=== PATIENT | female | born 1965 | race Caucasian/White ===

== ENCOUNTER 2017-09-22 17:24 | Inpatient (IN) | payer MEDICARE ==
[~2017-09-22] VITALS: Ht 165.1 cm; Wt 70.3 kg
[~2017-09-22 17:24] MED LIST: LIBRIUM; OXYCODONE; SYNTHROID; TOPAMAX
[2017-09-22] MEDS ORDERED: SODIUM CHLORIDE 0.9% 1,000 ML IVB ONE (19:18)
[2017-09-22] MEDS ORDERED: ONDANSETRON HCL 4 MG/2 ML VIAL IV ONE ×2 (19:30→23:15)
[2017-09-22] MEDS ORDERED: MEPERIDINE HCL (25 MG/ML) 1ML VIAL IV ONE (19:30)
[2017-09-22 20:24] LABS: Basophils # (auto) 0.1 uL; Basophils % (auto) 0.7 % (0.0-2.0); Eosinophils # (auto) 0.2 uL; Eosinophils % (auto) 2.6 % (0.0-7.0); Hematocrit 39.1 % (36.0-46.0); Hemoglobin 12.8 g/dL (12.2-16.2); Lymphocytes # (auto) 1.7 uL; Lymphocytes % (auto) 19.1 % (10.0-50.0); Mean Corpuscular Hemoglobin 29.9 pg (28.0-32.0); Mean Corpuscular Hgb Conc. 32.6 g/dL (32.0-36.0); Mean Corpuscular Volume 91.7 fL (80.0-100.0); Monocytes # (auto) 0.6 uL; Monocytes % (auto) 6.9 % (0.0-12.0); Neutrophils # (auto) 6.5 uL; Neutrophils % (auto) 70.7 % (37.0-80.0); Platelet Count (auto) 206 10^3/uL (140-450); Red Blood Cells 4.27 10^6/uL (4.0-5.20); Red Cell Distribution Width 14.1 % (11.8-14.3); White Blood Cell 9.1 10^3/uL (4.4-10.8)
[2017-09-22 20:43] LABS: INR 0.94 (0.9-1.15); Partial Thromboplastin Time 27.2 sec (22.64-33.71); Prothrombin Time 10.2 sec (9.37-12.3)
[2017-09-22 20:58] LABS: Magnesium 2.2 mg/dL (1.6-2.6)
[2017-09-22 21:01] LABS: BUN/Creatinine Ratio 12.2; Bilirubin, Total 0.2 mg/dL (0.2-1.0); Calcium 9.7 mg/dL (8.5-10.1); Potassium 3.7 mmol/L (3.5-5.1)
[2017-09-22 21:02] LABS: Albumin 3.9 g/dL (3.4-5.0)
[2017-09-22] MEDS ORDERED: cefTRIAXone 1GM/10ml IVPUSH 10 ML IV ONE (22:45)
[2017-09-22] MEDS ORDERED: diphenhdrAMINE HCL 50 MG/1 ML VL IV ONE (23:15)
[2017-09-22] MEDS ORDERED: MORPHINE SULFATE 4 MG/ML SYR/VIAL IV ONE (23:15)
[2017-09-22] MEDS: SODIUM CHLORIDE 0.9% 1,000 ML IV SCH (23:44)
[2017-09-22] MEDS ORDERED: ONDANSETRON HCL 4 MG/2 ML VIAL IV PRN (23:45)
[2017-09-22] MEDS ORDERED: CLINDAMYCIN 600MG IV 50 ML IV ONE (23:45)
[2017-09-22] MEDS ORDERED: DIAZEPAM 2 MG TAB PO PRN (23:45)
[2017-09-22] MEDS ORDERED: TEMAZEPAM 15 MG CAP PO PRN (23:45)
[2017-09-22] MEDS ORDERED: HYDROcodone-ACET 5/325MG TAB PO PRN (23:45)
[2017-09-22] MEDS ORDERED: ACETAMINOPHEN 325 MG TAB PO PRN (23:45)
[2017-09-23 00:50] VITALS: BP 130/77
[2017-09-23 05:00] VITALS: BP 101/60
[2017-09-23] MEDS ORDERED: LEVO200T46 PO (05:43)
[2017-09-23] MEDS ORDERED: OXY5T PO (05:43)
[2017-09-23] MEDS ORDERED: OXY20CRT PO (05:43)
[2017-09-23] MEDS: CLINDAMYCIN 600MG IV 50 ML IV SCH ×4 (06:00→14:00)
[2017-09-23 06:30] LABS: Basophils # (auto) 0.1 uL; Basophils % (auto) 1.1 % (0.0-2.0); Eosinophils # (auto) 0.2 uL; Eosinophils % (auto) 4.7 % (0.0-7.0); Hematocrit 35.7 % (36.0-46.0); Hemoglobin 11.4 g/dL (12.2-16.2); Lymphocytes # (auto) 1.6 uL; Lymphocytes % (auto) 31.2 % (10.0-50.0); Mean Corpuscular Hemoglobin 30.2 pg (28.0-32.0); Mean Corpuscular Volume 94.3 fL (80.0-100.0); Monocytes # (auto) 0.4 uL; Monocytes % (auto) 7.9 % (0.0-12.0); Neutrophils # (auto) 2.8 uL; Neutrophils % (auto) 55.1 % (37.0-80.0); Platelet Count (auto) 116 10^3/uL (140-450); Red Blood Cells 3.79 10^6/uL (4.0-5.20); Red Cell Distribution Width 14.4 % (11.8-14.3); White Blood Cell 5.2 10^3/uL (4.4-10.8)
[2017-09-23 08:00] VITALS: BP 103/69
[2017-09-23] MEDS: MORPHINE SULFATE 4 MG/ML SYR/VIAL IV PRN ×2 (08:15→12:07)
[2017-09-23 08:34] VITALS: BP 103/69
[2017-09-23] MEDS ORDERED: cefTRIAXone 1GM/10ml IVPUSH 10 ML IV SCH (09:00)
[2017-09-23 09:02] LABS: Albumin 3.7 g/dL (3.4-5.0); BUN/Creatinine Ratio 14.8; Bilirubin, Total 0.1 mg/dL (0.2-1.0); Calcium 9.1 mg/dL (8.5-10.1); Potassium 4.2 mmol/L (3.5-5.1); Total Protein 7.4 g/dL (6.4-8.2)
[2017-09-23] MEDS: FAMOTIDINE 20 MG TAB PO SCH ×2 (10:00→11:05)
[2017-09-23] MEDS: ENOXAPARIN SOD 40 MG/0.4 ML SYRINGE SC SCH ×2 (10:00→11:06)
[2017-09-23] MEDS ORDERED: diphenhdrAMINE HCL 50 MG/1 ML VL IV PRN (11:30)
[2017-09-23 12:00] VITALS: BP 126/79
[2017-09-23] MEDS: SODIUM CHLORIDE 0.9% 1,000 ML IV SCH (14:00)
[2017-09-23] MEDS ORDERED: AMITRIPTYLINE HCL 10 MG TAB PO SCH (22:00)
== END 2017-09-23 15:00 | disposition home or self-care (01) | DRG 603 ==
LOC: ER 17:30 → OVERFLOW 17:31 → CENTRAL 09-23 00:40
PROVIDERS: ADMIT Nurse Practitioner; ATTEND Family Medicine
DX: L03.317 Cellulitis of buttock (principal); F11.20 Opioid dependence, uncomplicated; M32.9 Systemic lupus erythematosus, unspecified; F41.9 Anxiety disorder, unspecified; F32.9 Major depressive disorder, single episode, unspecified; F17.210 Nicotine dependence, cigarettes, uncomplicated; G89.4 Chronic pain syndrome; N20.0 Calculus of kidney; Z83.3 Family history of diabetes mellitus; Z87.11 Personal history of peptic ulcer disease; Z90.710 Acquired absence of both cervix and uterus; Z91.040 Latex allergy status
CPT/HCPCS: 36415; 72131; 80053; 83605; 83735; 85025; 85610; 85730; 87040; 94761; 96361; 96374; 96375; 96376; J2405; J3490